=== PATIENT | male | born 1945 | race Caucasian/White ===

== ENCOUNTER 2017-01-23 14:29 | Outpatient (CLI) | payer MEDICARE ==
--- OUTSIDE RECORDS SUMMARY | 2017-01-23 15:18 | XMS | Continuity of Care Document ---
:1945 Author Organization [facility] Care Team Providers Name Role Phone Ramez Bennett Primary Care Physician Unavailable Insurance Providers Payer Name Policy Number Subscriber Name Relationship MEDICARE/HMO [facility] [place] [id number] LANIE MARTINEZ SELF/SAME PATIENT Advance Directives Directive Response Recorded Date/Time Advance Directive? N 01/29/16 1:36am Living Will? N 01/29/16 1:36am Health Care Proxy? N 01/29/16 1:36am Healthcare Power of Search Coordinator? N 01/29/16 1:36am Is the patient an Organ Donor? N 01/29/16 1:36am Chief Complaint and Reason for Visit Reason for Visit SOMETHING IN EYE Problems Active Medical Problems Problem Onset Date Recorded Date Status Corneal abrasion, left Unknown 01/29/16 Active Conjunctivitis Unknown 01/29/16 Active Medications Current Home Medications Medication Dose Units Route Directions Days/Qty Instructions Start Date ACETAMINOPHEN W/ 1 TAB PO EVERY SIX HOURS 20 01/29/16 CODEINE NEEDED PRN (ACETAMINOPHEN/CODE PAIN INE #3) 1 TAB TAB GENTAMICIN SULFATE 2 DROP OP EVERY FOUR HOURS 1 01/29/16 (OPHTH) (GARAMYCIN 0.3% OPTH DROPS) 0.3 % MICHELLE Gentamicin Sulfate 3 DROP OP THREE TIME A 20 08/18/13 (GENTAK 0.3% EYE DAY(;15;21) DROPS) 0.3 % MICHELLE Hydrocodone-Acetami 1 TAB OR EVERY FOUR HOURS 30 08/18/13 nophen (NORCO 5 NEEDED PRN MG/325 MG TAB) 5 EYE PAIN MG/325 MG TAB Social History Problem Response Recorded Date Recreational drugs? N 01/28/16 Alcohol? N 01/28/16 Query Response Start Date Stop Date Smoking Status: Former Smoker Hospital Discharge Instructions No hospital discharge instructions. Plan of Care Discharge Date 01/29/16 Disposition HOME/SELF CARE Condition at Discharge STABLE Instructions/Education Provided DI for Corneal Abrasion Forms Provided Discharge Form Prescriptions See Medications Section Additional Instructions/Education SEE PCP DOCTOR IN 2 DAYS Functional Status No functional status results. Allergies, Adverse Reactions, Alerts No known allergies. Immunizations No Known History of Immunizations. Vital Signs Vital Reading Collection Date/Time Result Blood Pressure 01/29/16 0:28am 153/90 Patient Temperature 01/29/16 0:28am 98.0 Temperature Source 01/28/16 11:49pm Oral Pulse Rate 01/29/16 0:28am 84 Bedside Pulse Oximetry 01/29/16 0:28am 96 Height 01/28/16 11:49pm 175.26 cm Height 01/28/16 11:49pm 5 ft 9.00 in Weight 01/28/16 11:49pm 92.986 kg Weight 01/28/16 11:49pm 205 lb 0.00 oz Body Mass Index 01/28/16 11:49pm 30.3 Results No known relevant diagnostic tests, laboratory data and/or discharge summary. Procedures No Known History of Procedures. Encounters Encounter Location Arrival/Admit Date Discharge/Depart Date Attending Provider Departed [place] 01/28/16 11:33pm 01/29/16 1:35am MANDIE OWENS [facility] Encounter Diagnosis Abrasion of left cornea Conjunctivitis
--- OUTSIDE RECORDS SUMMARY | 2017-01-23 15:18 | XMS | Clinical Summary ---
:1945 Author Organization [facility] Address [address] [place] [address] Phone Care Team Providers Name Role Phone , Primary Care Provider Unavailable Allergies Not on File Current Medications Not on file Active Problems Not on file Social History Tobacco Use Types Packs/Day Years Used Date Never Assessed Sex Assigned at Date Recorded Not on file Last Filed Vital Signs Not on file Plan of Treatment Not on file Results Not on filefrom Last 3 Months
[2017-01-23 18:54] LABS: Hematocrit 47.1 % (42.0-52.0); Mean Platelet Volume 7.7 fL (7.4-10.4); White Blood Cell (WBC) Count 8.2 thou/uL (4.8-10.8)
[2017-01-23 19:01] LABS: Prothrombin Time 15.4 SEC (12.0-14.7)
[2017-01-23 19:02] LABS: Bilirubin Negative (Negative); Blood, Urine Negative (Negative); Glucose, Urine (Dipstick) Negative (Negative); Ketone, Urine Negative (Negative); Nitrite Negative (Negative); Protein, Urine (Dipstick) Negative (Neg-Trace); Urobilinogen 0.2 mg/dL (0.2-1.0)
[2017-01-23 19:06] LABS: Anion Gap 18 mmol/L (10-20); BUN (Urea Nitrogen) 39 mg/dL (8.4-25.7); Calc. Creatinine Clearance 0 mL/min (70-130); Calcium 9.6 mg/dL (7.8-10.44); Carbon Dioxide 26 mmol/L (23-31); Chloride 104 mmol/L (98-107); Estimated GFR-MDRD 52
[2017-01-23 19:08] LABS: Bacteria/HPF None Seen HPF (None Seen); Hyaline Casts/LPF 0-3 HYALINE CAST LPF (0-3 Hyaline); RBC/HPF 0-3 HPF (0-3); Squamous Epithelial None Seen HPF (0-3); WBC/HPF None Seen HPF (0-3)
== END 2017-01-23 14:30 | disposition home or self-care (01) ==
LOC: LABBT 14:29
PROVIDERS: ATTEND Orthopaedic Surgery
DX: Z01.812 Encounter for preprocedural laboratory examination (principal); M19.012 Primary osteoarthritis, left shoulder
CPT/HCPCS: 80048; 81001; 85027; 85610; 87081

== ENCOUNTER 2017-02-02 10:30 | Inpatient (IN) | payer MEDICARE ==
--- OUTSIDE RECORDS SUMMARY | 2017-02-06 05:33 | XMS | Clinical Summary ---
:1945 Author Organization [facility] Address [address] [place] [address] Phone Care Team Providers Name Role Phone [...]
[2017-02-06] MEDS ORDERED: Fentanyl 100 MCG/2 ML VIAL ONE ×2 (06:26→10:44)
[2017-02-06] MEDS ORDERED: Midazolam HCl 2 mg/2 ml Vial ONE (06:26)
[2017-02-06] MEDS ORDERED: Ropivacaine 0.2% HCl/PF 20 ML ONE (06:26)
[2017-02-06] MEDS ORDERED: Tranexamic Acid 1,000 MG/100 ML BAG ONE ×2 (06:34→10:44)
[2017-02-06] MEDS ORDERED: CEFAZOLIN/Water 2 GM/20 ML SYRINGE ONE (06:35)
[2017-02-06] MEDS ORDERED: Vancomycin HCl 1.5 GM, Admixture Fee 1 EACH in Sodium Chloride 0.9% 250 ML 300 ML IVPB SCH ×2 (06:45→12:29)
[2017-02-06] MEDS ORDERED: Glycopyrrolate 0.2 MG/ML 5 ML SYRINGE ONE (07:27)
[2017-02-06] MEDS ORDERED: Ondansetron HCl/PF 4 MG/2 ML Vial ONE (07:27)
[2017-02-06] MEDS ORDERED: Propofol 200 MG/20 ML VIAL ONE (07:27)
[2017-02-06] MEDS ORDERED: PHENYLEPHRINE-NS 100 MCG/ML 10 ML SYRINGE ONE (07:27)
[2017-02-06] MEDS ORDERED: Promethazine HCl 25 MG/ML VIAL IM PRN ×3 (07:31→10:27)
[2017-02-06] MEDS ORDERED: Ropivacaine 0.2% 550 ML 550 ML NERVE BLCK SCH (07:31)
[2017-02-06] MEDS ORDERED: traMADol HCl 50 MG TAB PO PRN ×4 (07:31→12:29)
[2017-02-06] MEDS ORDERED: HYDROcodone/Acetaminophen 5/325 mg Tablet PO PRN ×2 (07:31)
[2017-02-06] MEDS ORDERED: Zolpidem Tartrate 5 MG TAB PO PRN (07:31)
[2017-02-06] MEDS ORDERED: Ondansetron HCl/PF 4 MG/2 ML Vial IVP PRN ×4 (07:31→12:29)
[2017-02-06] MEDS ORDERED: Fentanyl 100 MCG/2 ML VIAL IV PRN (07:32)
[2017-02-06] MEDS ORDERED: Promethazine HCl 25 MG/ML VIAL SLOW IVP PRN ×2 (08:33→10:27)
[2017-02-06] MEDS ORDERED: Tranexamic Acid 1,000 MG in Sodium Chloride 0.9% 100 ML IVPB SCH (09:45)
--- NOTE | 2017-02-06 12:20 | RAD ---
LEFT SHOULDER 3 VIEWS: Date: 02/06/17 HISTORY: Left shoulder arthroplasty. FINDINGS/IMPRESSION: There are postop changes of left humeral head prosthesis placement in good position and alignment. S urgical clips are present. There are degenerative changes in the acromioclavicular joint. ] POS: [facility]
[2017-02-06] MEDS ORDERED: diphenhydrAMINE 50 MG CAP PO PRN (12:29)
[2017-02-06] MEDS ORDERED: Methocarbamol 500 MG TAB PO PRN (12:29)
[2017-02-06] MEDS ORDERED: HYDROcodone/Acetaminophen 10/325 mg Tablet PO PRN ×3 (12:29→15:33)
[2017-02-06] MEDS ORDERED: Acetaminophen 325 MG TAB PO PRN (12:29)
[2017-02-06] MEDS ORDERED: Bisacodyl 10 MG SUPP PR PRN (12:29)
[2017-02-06] MEDS ORDERED: Gabapentin 100 MG CAP PO PRN (12:36)
[2017-02-06] MEDS ORDERED: HumaLOG 300 UNITS/3 ML VIAL SC PRN (13:26)
[2017-02-06] MEDS ORDERED: Dextrose 5% in Water 1,000 ML IV PRN (13:26)
[2017-02-06] MEDS ORDERED: Dextrose 50% Abboject 50 ML SYRINGE SLOW IVP PRN (13:26)
[2017-02-06] MEDS ORDERED: hydrALAZINE 20 MG/ML VIAL SLOW IVP PRN (13:26)
[2017-02-06] MEDS: Furosemide 80 MG TAB PO SCH (13:58)
[2017-02-06] MEDS ORDERED: Ropivacaine 0.5% HCl/PF (150 MG/30 ML VIAL) ONE (14:46)
[2017-02-06] MEDS: CEFAZOLIN/Water 2 GM/20 ML SYRINGE SLOW IVP SCH ×2 (15:39→20:59)
--- NOTE | 2017-02-06 15:57 | OP ---
DATE OF SURGERY: 02/06/2017 PREOPERATIVE DIAGNOSIS: Left shoulder osteoarthritis. POSTOPERATIVE DIAGNOSES: 1. Left shoulder osteoarthritis. 2. Biceps tendinopathy. PROCEDURES PERFORMED: 1. Left total shoulder arthroplasty. 2. Left biceps tenodesis. STAFF: Shant Prado M.D. RESTAURANT GREETER: TRISTAN Buck ANESTHESIA: Néstor Davies. The patient received a general intubation and interscalene block. ESTIMATED BLOOD LOSS: 300 mL. TOURNIQUET TIME: None. IMPLANTS: A Tornier Flex 2B stem with a low offset 50 x 16 mm head and a CortiLoc M35 Peg glenoid. ANTIBIOTICS: Ancef 2 grams, vancomycin 1.5 grams, TXA 1 gram. COMPLICATIONS: None. HISTORY OF PRESENT ILLNESS: Mr. Chaves is a pleasant 71-year-old male who presented to me with se veral years of left shoulder pain. The patient has a history of chronic pain, pain wakes him up at night. Pain is severe. We gave him injection which gave him good relief. 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 He understood the risks and b enefits of a left total shoulder arthroplasty, biceps tenodesis to include pain, scar, bleeding, inf ection, damage to vital structures, decreased range or strength, nonunion, malunion, fracture, need for revision, increased risk of infection with diabetes, loss of life or limb, understood these risk s and benefits and elected to proceed. PROCEDURE NOTE: Timeout was performed designating the patient's left upper extremity as the operati ve site based on sight, consents, and markings. Incision was made over the deltopectoral interval c kameron down and took a portion of the pec, exposed, kept the vein intact exposed. The patient had blee ding because of his Pradaxa, which was difficult to control within the bone. We controlled all veno us bleeding. We took down the superior aspect of his pec. We took down the subscapularis as 1 piec e. We cut the biceps and tagged it for a tenodesis later. We then exposed the head. I cut, based off the patient's articular surface which was sized to approximately B cut in 30 degrees of retrover bessy and the head was removed. We then broached up to size 2, it was actually firm and fixed and I was happy with the overall position. Therefore, we placed the hub cap on top, we reamed down osteop hytes inferiorly, then we put the hub cap on to position on the head. We placed Lexy in place and B ankart, exposed 360 degree. We took down the 360 degrees of entire capsule. We did the release sta stephen only on bone, bluntly dissecting inferiorly. After completely exposing and scraping off the ca rtilage that it was felt was free and washing that out, we sized to M35. We then placed a center pe g. We reamed, drilled a large hole. We then placed our 3 peg sites, we trialed, had a good firm fi t. We had started our cementing. We then placed in our 3 outer pegs and cemented glenoid in place. We then moved back to the humerus allowing the cement to harden. We placed size 2. Finally, we r eamed down, fit better at 12 o'clock position. I liked the overall alignment and position of the st em and it was firmly fixed in its position. Therefore, we drilled 4 sutures in simple fashion from inferior to superior and one through the cuff in a more lateral to help with a double row construct, placed the final implants. After I trialed and felt like it had 50%, was able to internally rotate the belly and overhead elevation 50% translation. We then used our stitches, we did a W stitch wit h our suture limb where the subscapularis was detached, we placed another stitch as mattress fashion , sewed this together from inferior to superior, cut the stitches. I then used a #2 Ethibond to do my tenodesis in the remnant tissue interval with two [id number] stitches, also used it again wh en I closed my rotator interval superiorly with [id number] stitch. I then finally passed my la rge rotator cuff, #5 Ethibond passed over the subscapularis, ran it and then passed a second limb ov er it as a double row closure and then we cut that, we then washed, and closed the deltopectoral int erval with 0, 2-0 and colt. The patient will be admitted, consult for medicine. The patient will have CBC in the morning. He w ill be followed by pain and will be discharged home with his pain regimen from his pain specialist.
[2017-02-06] MEDS ORDERED: Benzonatate 100 MG CAP PO PRN (16:31)
[2017-02-06] MEDS ORDERED: Guaifenesin DM 100-10/5 ML UDCUP PO PRN (16:32)
[2017-02-06 16:49] LABS: Hematocrit 41.8 % (42.0-52.0)
[2017-02-06] MEDS: Famotidine 20 MG TAB PO SCH ×2 (18:40→20:53)
[2017-02-06] MEDS: Sodium Chloride 0.9% 1,000 ML IV SCH (18:41)
[2017-02-06] MEDS: HumaLOG 300 UNITS/3 ML VIAL SC SCH (18:41)
--- NOTE | 2017-02-06 20:07 | RAD ---
CHEST TWO VIEWS: 02/06/17 HISTORY: Fall. Chest pain. COMPARISON: 12/05/14. FINDINGS: The cardiac silhouette is unremarkable. Patchy infiltrate projects over the left suprahilar level. T here is obscuration of the posterior aspect of the left hemidiaphragm. IMPRESSION: Left lower lobe infiltrate. Clinical correlation regarding other signs and symptoms of left lower lo be pneumonia is required. Please consider close continued radiographic followup after medial treatme nt. POS: [facility]
[2017-02-06 20:15] VITALS: BMI 34.0
[2017-02-06] MEDS: Dabigatran 150 mg Capsule PO SCH (20:52)
[2017-02-06] MEDS: Nebivolol HCl 5 MG TAB PO SCH (20:52)
[2017-02-06] MEDS: Potassium Chloride 20 MEQ TAB PO SCH (20:53)
[2017-02-06] MEDS: Insulin Detemir 100 UNITS/ML 50 UNITS in Pre-Filled Syringe 1 EACH SC SCH (21:15)
[2017-02-06] MEDS ORDERED: Furosemide 40 MG/4 ML VIAL SLOW IVP SCH (22:00)
--- NOTE | 2017-02-06 22:03 | CON ---
DATE OF CONSULTATION: 02/06/2017 CONSULTING PHYSICIAN: Shant Prado M.D. REASON FOR ADMISSION: Left frozen shoulder status post left total arthroplasty. REASON FOR CONSULTATION: Medical management. HISTORY OF PRESENT ILLNESS: This is a 71-year-old pleasant gentleman who was apparently in usual [facility], had left shoulder pain and was diagnosed with frozen shoulder on the left side. The patient was admitted and was taken to surgery for a left shoulder arthroplasty. The patient was adm itted for left shoulder arthroplasty and biceps tenodesis. The patient right now is complaining of some cough with a little bit of sputum production. No chest pain, palpitations, shortness of breath , fever or chills. No runny nose. PAST MEDICAL HISTORY: Significant for coronary artery disease status post stent, hypertension, hype rlipidemia, diabetes mellitus, chronic atrial fibrillation on Pradaxa and digoxin. The patient's ca rdiologist is Dr. Matthieu De Souza from [place]. PAST SURGICAL HISTORY: Significant for colonoscopy and EGD, which was screening procedures. MEDICATIONS: Include Pradaxa, digoxin, Lasix, gabapentin, [place], insulin, Bystolic, and Viagra. ALLERGIES: No known drug allergies. SOCIAL HISTORY: Negative for current smoke, tobacco use, alcohol use, or recreational drug use. REVIEW OF SYSTEMS: Significant for status post left shoulder surgery and some cough with some mild sputum production white greenish in color. Otherwise, no fever, no chills, no headache, no appetite , no hearing latencies. No chest pain, no diarrhea, dysuria, or polyuria. No memory or mood change s. No neck pain. PHYSICAL EXAMINATION: VITAL SIGNS: Blood pressure is 121/72, pulse is varies between 90 and 100, respirations 18, tempera ture is afebrile. GENERAL: The patient is lying in bed in no apparent distress. HEENT: Atraumatic, normocephalic. Pupils equally round, reactive to light. Extraocular movements intact. Mucous membranes moist. NECK: Supple. No JVD. CHEST: Breath sounds heard. No rales or rhonchi. HEART: S1, S2 normal, irregularly irregular heartbeat. ABDOMEN: Soft, obese. EXTREMITIES: The patient's left shoulder is in dressing. There is a drain present. No cyanosis, c lubbing, or edema. Distal pulses present. NEUROLOGIC: Alert, awake, oriented. No cranial deficits. No sensorimotor deficits. LABORATORY DATA: Potassium is 4.8, creatinine is 1.3. UA is negative. WBC count is 8.2, hemoglobi n is 15. ASSESSMENT AND PLAN: 1. Left frozen shoulder, status post left shoulder arthroplasty. 2. Biceps tendinopathy, status post left biceps tenodesis. 3. Coronary artery disease, status post stent, stable. 4. Hypertension, stable. We will continue home medications, p.r.n. hydralazine. 5. Diabetes mellitus, insulin sliding scale. We will continue home medications. 6. Chronic atrial fibrillation. Surgery has already continued with Pradaxa and digoxin. 7. Sequential compression devices and Pradaxa for deep venous thrombosis prophylaxis. I will work with the Dr. Prado in further caring for the patient. Thanks for letting me participate in this patient's care.
[2017-02-06] MEDS: HYDROcodone/Acetaminophen 10/325 mg Tablet PO PRN (22:21)
--- NOTE | 2017-02-06 22:25 | RAD ---
CHEST ONE VIEW 02/06/17 HISTORY: Cough. COMPARISON: Earlier exam on the same date. FINDINGS: The cardiac silhouette is magnified and at upper limits of normal in size. Left basilar atelectasis/ infiltrate has progressed since the previous exam. Mediastinum is midline. There is no evidence of p neumothorax. IMPRESSION: Continued progression of left basilar infiltrate. POS: [facility]
[2017-02-07] MEDS: HYDROcodone/Acetaminophen 10/325 mg Tablet PO PRN ×2 (02:58→08:23)
[2017-02-07] MEDS: Sodium Chloride 0.9% 1,000 ML IV SCH (04:58)
[2017-02-07 05:35] LABS: Hematocrit 39.5 % (42.0-52.0); Mean Platelet Volume 8.1 fL (7.4-10.4); Red Blood Cell (RBC) Count 4.79 mill/uL (4.70-6.10); White Blood Cell (WBC) Count 9.8 thou/uL (4.8-10.8)
[2017-02-07] MEDS: Furosemide 80 MG TAB PO SCH (08:22)
[2017-02-07] MEDS: Insulin Detemir 100 UNITS/ML 50 UNITS in Pre-Filled Syringe 1 EACH SC SCH (08:22)
[2017-02-07] MEDS: Potassium Chloride 20 MEQ TAB PO SCH (08:22)
[2017-02-07] MEDS: Dabigatran 150 mg Capsule PO SCH (08:23)
[2017-02-07] MEDS: Nebivolol HCl 5 MG TAB PO SCH (08:23)
[2017-02-07] MEDS: Famotidine 20 MG TAB PO SCH (08:23)
[2017-02-07] MEDS: HumaLOG 300 UNITS/3 ML VIAL SC SCH (08:25)
[2017-02-07 08:59] VITALS: BP 135/55; TEMP 98.5
[2017-02-07] MEDS ORDERED: Digoxin 0.125 MG TAB PO SCH (09:00)
[2017-02-07] MEDS ORDERED: FLU VACC TS2017-18 (>65YR) 0.5 ML SYRINGE IM ONE (09:00)
--- NOTE | 2017-02-07 16:15 | PDOC.PN ---
- Subjective Encounter Start Date: 02/07/17 Encounter Start Time: 08:00 Patient seen and examined. No new complaints. No overnight events - Objective Vital Signs & Weight: Vital Signs (12 hours) Temp Pulse Resp BP Pulse Ox 02/07/17 08:22 69 02/07/17 08:00 98.5 F 69 20 02/07/17 07:50 98.5 F 86 20 135/55 L 95 02/07/17 05:50 98.2 F 69 18 111/61 96 Weight Weight 230 lb I&O: 02/06/17 02/07/17 02/08/17 06:59 06:59 06:59 Intake Total 730 Output Total 600 Balance 130 Result Diagrams: 02/07/17 04:46 Additional Labs: Accuchecks 02/07/17 02/07/17 02/07/17 11:46 06:16 05:51 POC Glucose 184 H 80 77 02/06/17 02/06/17 21:05 16:07 POC Glucose 102 89 Phys Exam - Physical Examination Constitutional: NAD HEENT: PERRLA Neck: no JVD Respiratory: no wheezing Cardiovascular: no significant murmur Gastrointestinal: non-tender lt shoulder in dressing Neurological: moves all 4 limbs Psychiatric: A&O x 3 Dx/Plan (1) CAD (coronary artery disease) Code(s): I25.10 - ATHSCL HEART DISEASE OF [place] CORONARY ARTERY W/O ANG PCTRS Status: Acute (2) Afib Code(s): I48.91 - UNSPECIFIED ATRIAL FIBRILLATION Status: Acute (3) Bronchitis Code(s): J40 - BRONCHITIS, NOT SPECIFIED ACUTE OR CHRONIC Status: Acute (4) HTN (hypertension) Code(s): I10 - ESSENTIAL (PRIMARY) HYPERTENSION Status: Acute (5) Diabetes type I Status: Chronic - Plan * lt frozen shoulder- f/u ortho plan * start levaquin for bronchitis * cont current mx * d/c per primary
[2017-02-20 09:45] LABS: Oxyhemoglobin 97.6 % (94.0-97.0); Sodium 141 mmol/L (135-148)
[2017-02-21 07:36] LABS: Mode OR ABG; Vent YES
== END 2017-02-07 12:00 | disposition home or self-care (01) | DRG 483 ==
LOC: SURG A 02-06 05:30
PROVIDERS: ADMIT Orthopaedic Surgery; ATTEND Orthopaedic Surgery
PROC: 0RRK0JZ Replacement of Left Shoulder Joint with Synthetic Substitute, Open Approach (ICD-10-PCS; principal; 2017-02-06)
PROC: 3E0T3BZ Introduction of Anesthetic Agent into Peripheral Nerves and Plexi, Percutaneous Approach (ICD-10-PCS; 2017-02-06)
DX: M19.012 Primary osteoarthritis, left shoulder (principal); E11.42 Type 2 diabetes mellitus with diabetic polyneuropathy; I50.9 Heart failure, unspecified; I48.2 Chronic atrial fibrillation; I10 Essential (primary) hypertension; I25.10 Atherosclerotic heart disease of native coronary artery without angina pectoris; Z95.5 Presence of coronary angioplasty implant and graft; E78.5 Hyperlipidemia, unspecified; E11.9 Type 2 diabetes mellitus without complications; N40.0 Benign prostatic hyperplasia without lower urinary tract symptoms; N18.9 Chronic kidney disease, unspecified; J20.9 Acute bronchitis, unspecified; Z87.891 Personal history of nicotine dependence; M75.22 Bicipital tendinitis, left shoulder
CPT/HCPCS: 36415; 36416; 71010; 71020; 82805; 85014; 85018; 85027; 86850; 86900; 86901; A4306; C1713; G8984-GP-CK; G8985-GP-CK; G8986-GP-CK; G8987-GO-CJ; G8988-GO-CJ; G8989-GO-CJ; J0131; J1815; J1940; J2250; J2405; J2704; J2795; J3010; J3370; J7050

== ENCOUNTER 2018-09-19 01:31 | Outpatient (CLI) | payer MEDICARE ==
--- NOTE | 2018-09-19 10:23 | RAD ---
PA AND LATERAL CHEST: Date: 09/19/18 HISTORY: Preop. COMPARISON: 02/06/17 study. FINDINGS: Heart size is within normal limits. There are atherosclerotic changes of the aorta. Lungs are clear o f infiltrates. Left humeral prosthesis is noted. IMPRESSION: No active intrathoracic disease. POS: [facility]
[2018-09-19 10:46] LABS: #Basophils 0.1 thou/uL (0.0-0.2); #Eosinphils 0.3 thou/uL (0.0-0.7); #Neutrophils 4.1 thou/uL (1.40-6.50); %Basophils 0.7 % (0.0-1.0); %Eosinophils 3.6 % (0.0-10.0); %Lymphocytes 26.7 % (21.0-51.0); %Monocytes 13.8 % (0.0-10.0); %Neutrophils 55.3 % (42.0-75.0); Mean Corpuscular HGB CONC 32.6 g/dL (32.0-36.0); Mean Platelet Volume 7.8 fL (7.4-10.4); Platelet Count 174 thou/uL (130-400); RBC Distribution Width 15.1 % (11.5-14.5); Red Blood Cell (RBC) Count 5.57 mill/uL (4.70-6.10); White Blood Cell (WBC) Count 7.3 thou/uL (4.8-10.8)
[2018-09-19 10:57] LABS: INR-International Normal Ratio 1.5; Prothrombin Time 18.1 SEC (12.0-14.7)
[2018-09-19 11:11] LABS: Anion Gap 16 mmol/L (10-20); BUN (Urea Nitrogen) 34 mg/dL (8.4-25.7); Calc. Creatinine Clearance 0 mL/min (70-130); Calcium 9.6 mg/dL (7.8-10.44); Carbon Dioxide 25 mmol/L (23-31); Chloride 103 mmol/L (98-107); Estimated GFR-MDRD 47; Glucose 163 mg/dL (83-110); Potassium 4.6 mmol/L (3.5-5.1); Sodium 139 mmol/L (136-145)
== END 2018-09-19 01:32 | disposition home or self-care (01) ==
LOC: LABBT 01:31
PROVIDERS: ATTEND Orthopaedic Surgery
DX: Z01.818 Encounter for other preprocedural examination (principal); M17.12 Unilateral primary osteoarthritis, left knee
CPT/HCPCS: 71046; 80048; 85025; 85610; 87081; 93005; 93010

== ENCOUNTER 2018-09-19 08:45 | Inpatient (IN) | payer MEDICARE ==
[2018-10-08] MEDS ORDERED: Vancomycin HCl 1.5 GM in Sodium Chloride 0.9% 250 ML 300 ML IVPB SCH ×2 (07:00→20:00)
[2018-10-08] MEDS ORDERED: Tranexamic Acid 1,000 MG/10 ML VIAL ONE (07:14)
[2018-10-08] MEDS ORDERED: Sodium Chloride 0.9% 100 ML ONE (07:15)
[2018-10-08] MEDS ORDERED: Fentanyl 100 MCG/2 ML VIAL ONE ×4 (07:27→12:15)
[2018-10-08] MEDS ORDERED: Midazolam HCl 2 mg/2 ml Vial ONE (07:27)
[2018-10-08] MEDS ORDERED: Promethazine HCl 25 MG/ML VIAL IM PRN ×3 (08:46→11:53)
[2018-10-08] MEDS ORDERED: Fentanyl 100 MCG/2 ML VIAL IV PRN (08:46)
[2018-10-08] MEDS ORDERED: Zolpidem Tartrate 5 MG TAB PO PRN (08:46)
[2018-10-08] MEDS ORDERED: Ondansetron PF 4 MG/2 ML Vial IVP PRN ×2 (08:46→11:22)
[2018-10-08] MEDS ORDERED: traMADol HCl 50 MG TAB PO PRN ×2 (08:46)
[2018-10-08] MEDS ORDERED: Ropivacaine HCl/PF 250 ML in Premix Bag 1 BAG NERVE BLCK SCH (08:46)
[2018-10-08] MEDS ORDERED: HYDROcodone/Acetaminophen 10/325 mg Tablet PO PRN ×3 (08:46→11:22)
[2018-10-08] MEDS ORDERED: Bupivacaine/Epinephrine 0.25% 30 ML VIAL ONE (09:41)
[2018-10-08] MEDS ORDERED: Ropivacaine 0.2% HCl/PF (40 MG/20 ML VIAL) ONE (09:46)
[2018-10-08] MEDS ORDERED: Ropivacaine 0.5% HCl/PF (150 MG/30 ML VIAL) ONE (09:46)
[2018-10-08] MEDS ORDERED: methylPREDNISolone Acetate 40 mg/ml Vial ONE (09:49)
[2018-10-08] MEDS ORDERED: Lidocaine 1% (PF) 30 ML VIAL ONE (09:49)
[2018-10-08] MEDS ORDERED: Ondansetron PF 4 MG/2 ML Vial ONE (10:55)
[2018-10-08] MEDS ORDERED: Dexamethasone 20 MG/5 ML VIAL ONE (10:55)
[2018-10-08] MEDS ORDERED: PROPOFOL 200 MG/20 ML VIAL ONE (10:55)
[2018-10-08] MEDS ORDERED: Lidocaine 1% PF 5 ML VIAL ONE (10:55)
[2018-10-08] MEDS ORDERED: ePHEDrine 50 MG/ML VIAL ONE (10:55)
[2018-10-08] MEDS ORDERED: Fentanyl 100 MCG/2 ML VIAL SLOW IVP PRN ×2 (11:22)
[2018-10-08] MEDS ORDERED: diphenhydrAMINE 25 MG CAP PO PRN (11:22)
[2018-10-08] MEDS ORDERED: Acetaminophen 325 MG TAB PO PRN (11:22)
[2018-10-08] MEDS ORDERED: Promethazine HCl 25 MG/ML VIAL SLOW IVP PRN (11:53)
[2018-10-08] MEDS ORDERED: Ondansetron HCl/PF 4 MG/2 ML Vial IVP PRN (11:53)
[2018-10-08] MEDS ORDERED: Sildenafil Citrate 20 MG TAB PO PRN (12:07)
--- NOTE | 2018-10-08 12:48 | RAD ---
LEFT KNEE TWO VIEWS: 10/08/18 HISTORY: Total knee arthroplasty. FINDINGS/IMPRESSION: There are recent postop changes of total knee arthroplasty in good position and alignment. Soft tissu e air is present. POS: [facility]
[2018-10-08] MEDS ORDERED: Dextrose 50% Abboject 50 ML SYRINGE SLOW IVP PRN (13:10)
[2018-10-08] MEDS ORDERED: Dextrose 5% in Water 1,000 ML IV PRN (13:10)
[2018-10-08] MEDS ORDERED: Insulin Regular 300 UNITS/3 ML VIAL SC PRN ×2 (13:10)
[2018-10-08] MEDS: HumaLOG 300 UNITS/3 ML VIAL SC PRN ×3 (14:02→20:46)
[2018-10-08] MEDS: CEFAZOLIN 2 GM in Premix Bag 1 BAG IVPB SCH ×2 (14:02→22:32)
[2018-10-08] MEDS: Sodium Chloride 0.9% 1,000 ML IV SCH ×3 (14:12→22:36)
--- NOTE | 2018-10-08 14:50 | HP ---
HISTORY OF PRESENT ILLNESS: Mr. Chaves is a 73-year-old male, well known to my service, presents with left greater than right knee pain, desires to undergo a left total knee arthroplasty. The patient has failed conservative measures. He has history of chronic pain. He has received his cardiac clearance and is preoperatively cleared. He desires to have a right knee injection. PAST MEDICAL HISTORY: Coronary artery disease, atrial fibrillation, diabetes, reflux, heart failure, pneumonia, peripheral neuropathy, chronic kidney disease, BPH, pain management. PAST SURGICAL HISTORY: Coronary stents x2, colonoscopy, appendectomy, tonsillectomy, right leg fracture, bilateral carpal tunnel, right and left elbow surgery, left total shoulder. MEDICATIONS: 1. Pradaxa. 2. Diclofenac. 3. Digoxin. 4. Furosemide. 5. Humalog. 6. Hydrocodone. 7. [place]-3. 8. Potassium. 9. Viagra. 10. Ambien. ALLERGIES: MORPHINE. SOCIAL HISTORY: Nonsmoker. Nonalcoholic. The patient works as a manufacturers agent of the shelter. PHYSICAL EXAMINATION: GENERAL: Alert and oriented male, in no acute distress, resting comfortably in bed. EXTREMITIES: Left lower extremity, the patient has no effusion. He has stable exam. Neurovascularly intact distally. Range of motion 0 to 90. No laxity. Neurovascularly intact. Right knee tender to palpation. Neurovascularly intact distally. IMPRESSION: Bilateral knee osteoarthritis, left greater than right. ASSESSMENT AND PLAN: The patient will proceed with a total knee arthroplasty of his left knee. We will inject his right knee before the surgery. He is to discontinue the Pradaxa. I discussed risks and benefits of surgery, pain, scar, bleeding, infection, damage to vital structures, decreased range of motion and strength, nonunion, fracture above or below the stem, and need for further surgery, loss of life or limb. The patient understands the risks and benefits, elected to proceed. The patient's pain medication will be maintained and he will be started back on his pain contract with his previous doctors. Job ID: [id number]
[2018-10-08] MEDS ORDERED: HumaLOG 300 UNITS/3 ML VIAL SC SCH ×2 (15:00→16:00)
[2018-10-08] MEDS: HumaLOG 300 UNITS/3 ML VIAL SC SCH ×2 (15:48→17:45)
[2018-10-08] MEDS: Furosemide 80 MG TAB PO SCH (15:53)
--- NOTE | 2018-10-08 16:33 | OP ---
DATE OF PROCEDURE: 10/08/2018 PREOPERATIVE DIAGNOSES: 1. Left knee osteoarthritis. 2. Right knee osteoarthritis. POSTOPERATIVE DIAGNOSES: 1. Left knee osteoarthritis. 2. Right knee osteoarthritis. PROCEDURES PERFORMED: 1. Left total knee arthroplasty. 2. Right knee intra-articular injection. ELECTRIC DOLLY OPERATOR: Leon Saenz PA-C. ANESTHESIA: The patient received a LMA with a single-shot sciatic and an indwelling adductor canal catheter. ESTIMATED BLOOD LOSS: 100 mL. TOURNIQUET TIME: 63 minutes at 300 mmHg. ANTIBIOTICS: Ancef 2 g and vancomycin 1.5 g. The patient received TXA 1 g. IMPLANTS: Ortiz Triathlon size 4 CR femur, A32 patella, size 4 baseplate, size 4 x 9 mm CS insert. COMPLICATIONS: None. INDICATION: Mr. Chaves is a 73-year-old male who presents with bilateral knee pain. He desired left total knee arthroplasty. The patient has history of chronic pain. I discussed the risks and benefits associated with chronic pain and total knee arthroplasty. I discussed risks and benefits of the surgery to include pain, scar, bleeding, infection, damage to vital structures, decreased range of motion and strength, nonunion, malunion, fracture above the stems, need for further surgeries, failure of implants, loss of life and limb, blood clots. The patient understood the risks and benefits and elected to proceed. DESCRIPTION OF PROCEDURE: Time-out was performed designating the patient's left lower extremity as the operative site based on site, consents, and marking. After time-out, the left lower extremity was prepped and draped in sterile fashion. Tourniquet was brought up for 63 minutes. Anterior midline approach, medial patellar arthrotomy was performed. At medial soft tissue, excised the fat pad, everted the patella, exposed the distal femur cut. 2 degrees of varus and valgus, 4 degrees of slope, and cut 8 to 9 [address] Pl[address] our block, measured it to 4 and cut a size 4 anterior, posterior and chamfer cuts. Removed all the osteophytes. Placed the pickle fork in position after we released our PCL and exposed the patient's tibia. We mapped out the tibia with 4 to 5 degrees of posterior slope, 1 and 8 mm of the respective cuts, removed the bone, and cleaned off our osteophytes. We placed our tibial tray into position, anterior 1/3 tibial tray inline with tibial tubercle down to second ray, pinned it into position, placed a 9 poly and our femur tracked well. We liked the overall alignment and stability. We everted the patella, cut it down from about 23 down to about 11 to 12 mm. We placed our A32 patella, which tracked well. We liked the overall alignment and position. We removed our implants, removed all excess bone. We had done our lamina spreaders and removed our osteophytes as well as our menisci before placing our final components. We cemented in our tibia and placed tibial poly, cemented our femur, removed all excess cement from both. We cemented our patella and removed excess cement. We washed the joint and ensured we had all cleaned out. We closed the medial patellar arthrotomy with 2 Vicryl, 2 Quill, 0 Quill and glue. The patient will be admitted to [facility] for postoperative protocol. We will follow him inhouse. Job ID: [id number]
--- NOTE | 2018-10-08 19:47 | PDOC.PN ---
- Subjective Encounter Start Date: 10/08/18 Encounter Start Time: 17:00 Subjective: no sob or chest pain -: is worried about his fingerstick glucose going >200mg/dl -: no pain in his knee, has ambulated with PT post op - Objective MAR Reviewed: Yes Vital Signs & Weight: Vital Signs (12 hours) Temp Pulse Resp BP Pulse Ox 10/08/18 17:20 97.7 F 93 18 145/70 H 97 10/08/18 12:50 97.6 F 81 18 167/91 H 96 Weight Weight 215 lb 7.584 oz I&O: 10/07/18 10/08/18 10/09/18 06:59 06:59 06:59 Intake Total 1500 Balance 1500 Additional Labs: Accuchecks 10/08/18 10/08/18 10/08/18 18:37 15:10 13:10 POC Glucose 173 H 229 H 242 H 10/08/18 12:16 POC Glucose 195 H Phys Exam - Physical Examination HEENT: PERRLA, moist MMs Neck: no JVD, supple Respiratory: no wheezing, no rales Cardiovascular: RRR, no significant murmur Gastrointestinal: soft, non-tender, positive bowel sounds Musculoskeletal: pulses present left knee in dressing Neurological: non-focal, moves all 4 limbs Psychiatric: normal affect, A&O x 3 Dx/Plan (1) DM type 2 (diabetes mellitus, type 2) Status: Chronic Qualifiers: Diabetes mellitus alf insulin use: with alf use Diabetes mellitus complication status: with neurologic complications Diabetes mellitus complication detail: with polyneuropathy Qualified Code(s): E11.42 - Type 2 diabetes mellitus with diabetic polyneuropathy; Z79.4 - terminal supervisor (current) use of insulin (2) CKD (chronic kidney disease) Code(s): N18.9 - CHRONIC KIDNEY DISEASE, UNSPECIFIED Status: Chronic Qualifiers: Chronic kidney disease stage: unspecified stage Qualified Code(s): N18.9 - Chronic kidney disease, unspecified (3) BPH (benign prostatic hyperplasia) Code(s): N40.0 - BENIGN PROSTATIC HYPERPLASIA WITHOUT LOWER URINRY TRACT SYMP Status: Chronic Qualifiers: Lower urinary tract symptom presence: symptoms absent Qualified Code(s): N40.0 - Benign prostatic hyperplasia without lower urinary tract symptoms (4) Afib Code(s): I48.91 - UNSPECIFIED ATRIAL FIBRILLATION Status: Chronic Qualifiers: Atrial fibrillation type: paroxysmal Qualified Code(s): I48.0 - Paroxysmal atrial fibrillation (5) CAD (coronary artery disease) Code(s): I25.10 - ATHSCL HEART DISEASE OF [place] CORONARY ARTERY W/O ANG PCTRS Status: Chronic Qualifiers: Coronary Disease-Associated Artery/Lesion type: [place] artery [place] vs. transplanted heart: [place] heart Associated angina: without angina Qualified Code(s): I25.10 - Atherosclerotic heart disease of [place] coronary artery without angina pectoris Comment: prior stent x2, primary cardio: in [place] (6) CHF (congestive heart failure) Code(s): I50.9 - HEART FAILURE, UNSPECIFIED Status: Chronic Qualifiers: Heart failure type: unspecified Heart failure chronicity: chronic Qualified Code(s): I50.9 - Heart failure, unspecified (7) HTN (hypertension) Code(s): I10 - ESSENTIAL (PRIMARY) HYPERTENSION Status: Chronic Qualifiers: Hypertension type: essential hypertension Qualified Code(s): I10 - Essential (primary) hypertension - Plan hemostable -: is on aggressive humalog sliding scale in addition to 5 u with meals -: watch for hypoglycemia, I have tried to educate pt about post op stress and -: --dm being a bit labile, to aim for 150-200mg/dl -: Will provide him information about basal insulin prior to dc * . labs in am will f/u continue pradaxa bid, digoxin, lasix, bystolic. Ropivacaine nr block and prn pain meds. Review of Systems - Medications/Allergies Allergies/Adverse Reactions: Allergies Allergy/AdvReac Type Severity Reaction Status Date / Time No Known Allergies Allergy Verified 09/19/18 08:52 Medications: Current Medications Acetaminophen (Tylenol) 650 mg PO Q4H PRN PRN Reason: Headache/Fever or Pain Hydrocodone Bitart/Acetaminophen ([place] 10/325) 1 tab PO Q4H PRN PRN Reason: Pain (1-3) Hydrocodone Bitart/Acetaminophen ([place] 10/325) 2 tab PO Q4H PRN PRN Reason: PAIN (4-6) Dabigatran (Pradaxa) 150 mg PO BID [facility] Dextrose/Water (Dextrose 50%) 25 gm SLOW IVP PRN PRN PRN Reason: Hypoglycemia Digoxin (Lanoxin) 0.125 mg PO QAM [facility] Diphenhydramine HCl (Benadryl) 25 mg PO Q6H PRN PRN Reason: Itching Fentanyl (Sublimaze) 50 mcg IV Q1H PRN PRN Reason: BREAKTHROUGH PAIN Ferrous Gluconate (Fergon) 324 mg PO BID-WM [facility] Furosemide (Lasix) 80 mg PO BID-AC [facility] Last Admin: 10/08/18 15:53 Dose: 80 mg Glucagon (Glucagon) 1 mg IM PRN PRN PRN Reason: Hypoglycemia Ropivacaine 250 ml/ Device 250 mls @ 0 mls/hr NERVE BLCK INF [facility] Cefazolin Sodium/Dextrose 2 gm (/ Device) 50 mls @ 100 mls/hr IVPB 0700,1500, 2300 [facility] Stop: 10/08/18 23:29 Last Admin: 10/08/18 14:02 Dose: 50 mls Sodium Chloride (Normal Saline 0.9%) 1,000 mls @ 100 mls/hr IV .Q10H [facility] Last Admin: 10/08/18 14:12 Dose: Not Given Vancomycin HCl 1.5 gm/ Sodium (Chloride) 300 mls @ 200 mls/hr IVPB 2000 [facility] Stop: 10/08/18 21:29 Dextrose/Water (D5w) 1,000 mls @ 0 mls/hr IV .Q0M PRN PRN Reason: Hypoglycemia Insulin Human Lispro (Humalog) 0 units SC .AGGRESSIVE SLIDING PRN PRN Reason: Aggressive Correctional Scale Last Admin: 10/08/18 15:49 Dose: 6 units Insulin Human Lispro (Humalog) 0 units SC .BEDTIME SLIDING SC PRN PRN Reason: Bedtime Correctional Scale Insulin Human Lispro (Humalog) 5 units SC 0800 [facility] Insulin Human Lispro (Humalog) 5 units SC 1200 [facility] Insulin Human Lispro (Humalog) 5 units SC 1700 [facility] Last Admin: 10/08/18 17:45 Dose: Not Given Iron/Minerals/Multivitamins (Theragran M) 1 tab PO DAILY [facility] Nebivolol (Bystolic) 10 mg PO BID [facility] Ondansetron HCl (Zofran) 4 mg IVP Q6H PRN PRN Reason: Nausea/Vomiting Potassium Chloride (K-Dur) 20 meq PO BID [facility] Promethazine HCl (Phenergan) 12.5 mg IM Q4H PRN PRN Reason: Nausea/Vomiting Senna/Docusate Sodium (Senokot S) 2 tab PO BID [facility] Sodium Chloride (Flush - Normal Saline) 10 ml IVF PRN PRN PRN Reason: Saline Flush Tramadol HCl (Ultram) 50 mg PO Q6H PRN PRN Reason: Mild Pain (1-3) Tramadol HCl (Ultram) 100 mg PO Q6H PRN PRN Reason: Moderate Pain 4-6 Zolpidem Tartrate (Ambien) 5 mg PO HSPRN PRN PRN Reason: Insomnia
[2018-10-08] MEDS: Nebivolol HCl 5 MG TAB PO SCH (20:26)
[2018-10-08] MEDS: Potassium Chloride 20 MEQ TAB PO SCH (20:27)
[2018-10-08 20:35] LABS: Anion Gap 17 mmol/L (10-20); BUN (Urea Nitrogen) 35 mg/dL (8.4-25.7); Calc. Creatinine Clearance 63 mL/min (70-130); Carbon Dioxide 27 mmol/L (23-31); Chloride 98 mmol/L (98-107); Estimated GFR-MDRD 47; Glucose 203 mg/dL (83-110); Potassium 4.5 mmol/L (3.5-5.1); Sodium 137 mmol/L (136-145)
[2018-10-08] MEDS: HYDROcodone/Acetaminophen 10/325 mg Tablet PO PRN (20:37)
[2018-10-08] MEDS: Zolpidem Tartrate 5 MG TAB PO PRN (22:32)
[2018-10-09] MEDS: HYDROcodone/Acetaminophen 10/325 mg Tablet PO PRN ×5 (02:03→22:26)
[2018-10-09] MEDS: HumaLOG 300 UNITS/3 ML VIAL SC PRN ×2 (06:00→15:02)
[2018-10-09 07:15] LABS: Hemoglobin 14.9 g/dL (14.0-18.0); Mean Corpuscular Volume 84.8 fL (78.0-98.0); Mean Platelet Volume 7.5 fL (7.4-10.4); Platelet Count 216 thou/uL (130-400); RBC Distribution Width 14.3 % (11.5-14.5); Red Blood Cell (RBC) Count 5.31 mill/uL (4.70-6.10); White Blood Cell (WBC) Count 15.7 thou/uL (4.8-10.8)
[2018-10-09 07:38] LABS: ALT (SGPT) 17 U/L (8-55); AST (SGOT) 19 U/L (5-34); Albumin 4.4 g/dL (3.4-4.8); Alkaline Phosphatase 94 U/L (40-150); Anion Gap 18 mmol/L (10-20); BUN (Urea Nitrogen) 40 mg/dL (8.4-25.7); Bilirubin, Total 0.6 mg/dL (0.2-1.2); Calc. Creatinine Clearance 55 mL/min (70-130); Calcium 9.5 mg/dL (7.8-10.44); Carbon Dioxide 22 mmol/L (23-31); Chloride 98 mmol/L (98-107); Estimated GFR-MDRD 40; Globulin 2.5 g/dL (2.4-3.5); Glucose 366 mg/dL (83-110); Hemoglobin A1c 6.5 % (4.0-6.0); Potassium 4.3 mmol/L (3.5-5.1); Protein, Total 6.9 g/dL (5.8-8.1); Sodium 134 mmol/L (136-145)
[2018-10-09] MEDS ORDERED: HumaLOG 300 UNITS/3 ML VIAL SC SCH ×2 (08:00→12:00)
[2018-10-09] MEDS: Furosemide 80 MG TAB PO SCH ×2 (08:52→16:56)
[2018-10-09] MEDS: Ferrous Gluconate 324 MG TAB PO SCH ×2 (08:53→16:56)
[2018-10-09] MEDS: Dabigatran 150 mg Capsule PO SCH ×2 (08:53→20:48)
[2018-10-09] MEDS: Potassium Chloride 20 MEQ TAB PO SCH ×2 (08:54→20:36)
[2018-10-09] MEDS: Multivitamin W/ Minerals 1 TAB PO SCH (08:54)
[2018-10-09] MEDS: Senokot S 8.6-50 MG TAB PO SCH ×2 (08:54→20:46)
[2018-10-09] MEDS: Insulin Glargine 20 UNITS in Pre-Filled Syringe 1 EACH SC SCH (09:50)
[2018-10-09] MEDS: Digoxin 0.125 MG TAB PO SCH (09:52)
[2018-10-09] MEDS: Nebivolol HCl 5 MG TAB PO SCH ×2 (09:52→20:46)
[2018-10-09] MEDS ORDERED: Insulin Regular 300 UNITS/3 ML VIAL ONE (11:27)
[2018-10-09] MEDS ORDERED: PHENYLEPHRINE-NS 100 MCG/ML 10 ML SYRINGE ONE (11:42)
[2018-10-09] MEDS ORDERED: Succinylcholine Chloride 20 MG/ML 10 ml SYRINGE FS ONE (11:42)
[2018-10-09] MEDS ORDERED: PROPOFOL 200 MG/20 ML VIAL ONE (11:42)
[2018-10-09] MEDS ORDERED: Ondansetron PF 4 MG/2 ML Vial ONE (11:42)
[2018-10-09] MEDS ORDERED: Fentanyl 100 MCG/2 ML VIAL ONE ×3 (11:47→13:35)
--- NOTE | 2018-10-09 11:53 | PDOC.PN ---
- Subjective Encounter Start Date: 10/09/18 Encounter Start Time: 10:00 Subjective: he had soft fall this am in the room -: has seen him after the fall and xrays are ordered per patient -: he got regular diet, sugars have hit 400 this am - Objective MAR Reviewed: Yes Vital Signs & Weight: Vital Signs (12 hours) Temp Pulse Resp BP Pulse Ox 10/09/18 09:52 103 H 10/09/18 07:14 98.2 F 103 H 20 142/77 H 95 10/09/18 06:55 98.2 F 88 20 144/88 H 98 10/09/18 03:46 98.1 F 87 16 137/83 95 10/09/18 00:00 97.7 F 78 16 120/65 95 Weight Weight 215 lb 7.584 oz I&O: 10/08/18 10/09/18 10/10/18 06:59 06:59 06:59 Intake Total 2510 Output Total 1200 Balance 1310 Result Diagrams: 10/09/18 06:57 10/09/18 06:57 Additional Labs: Accuchecks 10/09/18 10/09/18 10/09/18 10:56 08:56 05:48 POC Glucose 313 H 343 H 403 H 10/08/18 10/08/18 10/08/18 22:24 20:47 18:37 POC Glucose 213 H 220 H 173 H 10/08/18 10/08/18 10/08/18 15:10 13:10 12:16 POC Glucose 229 H 242 H 195 H 10/08/18 08:15 POC Glucose 188 H Phys Exam - Physical Examination HEENT: PERRLA, moist MMs Neck: no JVD, supple Respiratory: no wheezing, no rales Cardiovascular: RRR, no significant murmur Gastrointestinal: soft, non-tender, positive bowel sounds Musculoskeletal: pulses present mild oozing at knee surgery site Neurological: non-focal, moves all 4 limbs Psychiatric: normal affect, A&O x 3 Dx/Plan (1) DM type 2 (diabetes mellitus, type 2) Status: Chronic Qualifiers: Diabetes mellitus prison insulin use: with long term care social worker use Diabetes mellitus complication status: with neurologic complications Diabetes mellitus complication detail: with polyneuropathy Qualified Code(s): E11.42 - Type 2 diabetes mellitus with diabetic polyneuropathy; Z79.4 - [facility] (current) use of insulin Comment: uncontrolled (2) CKD (chronic kidney disease) Code(s): N18.9 - CHRONIC KIDNEY DISEASE, UNSPECIFIED Status: Chronic Qualifiers: Chronic kidney disease stage: stage 3 (moderate) Qualified Code(s): N18.3 - Chronic kidney disease, stage 3 (moderate) (3) BPH (benign prostatic hyperplasia) Code(s): N40.0 - BENIGN PROSTATIC HYPERPLASIA WITHOUT LOWER URINRY TRACT SYMP Status: Chronic Qualifiers: Lower urinary tract symptom presence: symptoms absent Qualified Code(s): N40.0 - Benign prostatic hyperplasia without lower urinary tract symptoms (4) Afib Code(s): I48.91 - UNSPECIFIED ATRIAL FIBRILLATION Status: Chronic Qualifiers: Atrial fibrillation type: paroxysmal Qualified Code(s): I48.0 - Paroxysmal atrial fibrillation (5) CAD (coronary artery disease) Code(s): I25.10 - ATHSCL HEART DISEASE OF [place] CORONARY ARTERY W/O ANG PCTRS Status: Chronic Qualifiers: Coronary Disease-Associated Artery/Lesion type: [place] artery [place] vs. transplanted heart: [place] heart Associated angina: without angina Qualified Code(s): I25.10 - Atherosclerotic heart disease of [place] coronary artery without angina pectoris Comment: prior stent x2, primary cardio: in [place] (6) CHF (congestive heart failure) Code(s): I50.9 - HEART FAILURE, UNSPECIFIED Status: Chronic Qualifiers: Heart failure type: unspecified Heart failure chronicity: chronic Qualified Code(s): I50.9 - Heart failure, unspecified (7) HTN (hypertension) Code(s): I10 - ESSENTIAL (PRIMARY) HYPERTENSION Status: Chronic Qualifiers: Hypertension type: essential hypertension Qualified Code(s): I10 - Essential (primary) hypertension - Plan is going to OR for wound dehiscence due to fall this am -: lantus 20 u has been given this am, I have educated him about basal insulin -: 1800kcal ada, heart healthy diet after he comes back from OR -: is on aggressive humalog coverage -: I have explained about post op stress effects on glucose metabolism etc * . I have also stressed the importance of keeping fingerstick around 150-200mg/dl for the next 10 days. He insists on getting to lower than 150mg/dl if not his left leg neuropathy will act up, again I have explained that its unlikely to do that. We have discussed about various ways of handling his dm in the outpt setting, For now its better he takes basal insulin and novolog cov at home. Will f/u he will talk to his labels molder and reduce his dose of lasix, Creatinine is 1.4 , I have explained stages of CKD and his is stage 3. Review of Systems - Medications/Allergies Allergies/Adverse Reactions: Allergies Allergy/AdvReac Type Severity Reaction Status Date / Time No Known Allergies Allergy Verified 09/19/18 08:52 Medications: Current Medications Acetaminophen (Tylenol) 650 mg PO Q4H PRN PRN Reason: Headache/Fever or Pain Hydrocodone Bitart/Acetaminophen ([place] 10/325) 1 tab PO Q4H PRN PRN Reason: Pain (1-3) Hydrocodone Bitart/Acetaminophen ([place] 10/325) 2 tab PO Q4H PRN PRN Reason: PAIN (4-6) Last Admin: 10/09/18 05:59 Dose: 2 tab Dabigatran (Pradaxa) 150 mg PO BID [facility] Last Admin: 10/09/18 08:53 Dose: Not Given Dextrose/Water (Dextrose 50%) 25 gm SLOW IVP PRN PRN PRN Reason: Hypoglycemia Digoxin (Lanoxin) 0.125 mg PO QAM [facility] Last Admin: 10/09/18 09:52 Dose: 0.125 mg Diphenhydramine HCl (Benadryl) 25 mg PO Q6H PRN PRN Reason: Itching Fentanyl (Sublimaze) 50 mcg IV Q1H PRN PRN Reason: BREAKTHROUGH PAIN Ferrous Gluconate (Fergon) 324 mg PO BID-WM [facility] Last Admin: 10/09/18 08:53 Dose: Not Given Furosemide (Lasix) 80 mg PO BID-AC [facility] Last Admin: 10/09/18 08:52 Dose: Not Given Glucagon (Glucagon) 1 mg IM PRN PRN PRN Reason: Hypoglycemia Ropivacaine 250 ml/ Device 250 mls @ 0 mls/hr NERVE BLCK INF [facility] Sodium Chloride (Normal Saline 0.9%) 1,000 mls @ 100 mls/hr IV .Q10H [facility] Last Admin: 10/08/18 22:36 Dose: Not Given Dextrose/Water (D5w) 1,000 mls @ 0 mls/hr IV .Q0M PRN PRN Reason: Hypoglycemia Insulin Glargine 20 units/ (Miscellaneous Medication) 0.2 mls @ 0 mls/hr SC QAM [facility] Last Admin: 10/09/18 09:50 Dose: 0.2 mls Insulin Human Lispro (Humalog) 0 units SC .AGGRESSIVE SLIDING PRN PRN Reason: Aggressive Correctional Scale Last Admin: 10/08/18 15:49 Dose: 6 units Insulin Human Lispro (Humalog) 0 units SC .BEDTIME SLIDING SC PRN PRN Reason: Bedtime Correctional Scale Last Admin: 10/09/18 06:00 Dose: 5 unit Iron/Minerals/Multivitamins (Theragran M) 1 tab PO DAILY [facility] Last Admin: 10/09/18 08:54 Dose: Not Given Nebivolol (Bystolic) 10 mg PO BID [facility] Last Admin: 10/09/18 09:52 Dose: 10 mg Ondansetron HCl (Zofran) 4 mg IVP Q6H PRN PRN Reason: Nausea/Vomiting Potassium Chloride (K-Dur) 20 meq PO BID [facility] Last Admin: 10/09/18 08:54 Dose: Not Given Promethazine HCl (Phenergan) 12.5 mg IM Q4H PRN PRN Reason: Nausea/Vomiting Senna/Docusate Sodium (Senokot S) 2 tab PO BID [facility] Last Admin: 10/09/18 08:54 Dose: Not Given Sodium Chloride (Flush - Normal Saline) 10 ml IVF PRN PRN PRN Reason: Saline Flush Tramadol HCl (Ultram) 50 mg PO Q6H PRN PRN Reason: Mild Pain (1-3) Tramadol HCl (Ultram) 100 mg PO Q6H PRN PRN Reason: Moderate Pain 4-6 Zolpidem Tartrate (Ambien) 5 mg PO HSPRN PRN PRN Reason: Insomnia Last Admin: 10/08/18 22:32 Dose: 5 mg
[2018-10-09] MEDS ORDERED: Promethazine HCl 25 MG/ML VIAL IM/IV PRN (13:45)
[2018-10-09] MEDS ORDERED: Ondansetron HCl/PF 4 MG/2 ML Vial IVP PRN (13:45)
[2018-10-09] MEDS ORDERED: Non-Formulary Medication 1 EACH PO PRN (13:45)
[2018-10-09] MEDS: Sodium Chloride 0.9% 1,000 ML IV SCH ×2 (18:39→20:36)
[2018-10-09] MEDS ORDERED: Insulin Glargine 20 UNITS in Pre-Filled Syringe SC SCH (21:00)
[2018-10-09] MEDS: Zolpidem Tartrate 5 MG TAB PO PRN (22:26)
--- NOTE | 2018-10-09 23:12 | OP ---
DATE OF PROCEDURE: 10/09/2018 PREOPERATIVE DIAGNOSIS: Left knee postoperative traumatic arthrotomy. POSTOPERATIVE DIAGNOSIS: Left knee postoperative traumatic arthrotomy. PROCEDURES PERFORMED: Incision, drainage, washout, exploration of left total knee arthroplasty. EMERGENCY DEPT TECH: JOSE ENRIQUE Oquendo. ANESTHESIA: General via LMA. ESTIMATED BLOOD LOSS: Less than 20 mL. TOURNIQUET: Not use. FINDINGS: Skin incision traumatic dehiscence, but without molestation of arthrotomy repair. INDICATION FOR SURGERY: Mr. Mae is a 73-year-old male who is postop day #1 from left total knee arthroplasty. He attempted to get up without assistance during his hospital stay this morning and fell landing on his left knee resulting in an inferior incision traumatic dehiscence. We elected to take the patient to the OR to explore the wound since the bleeding was very difficult to control and explored, washout and performed primary closure. PROCEDURE IN DETAIL: After informed consent in the preoperative holding area, the patient was taken to the operative suite, repositioned properly on the operating table. General anesthesia was induced. Left lower extremity was prepped and draped in usual sterile fashion using a Betadine scrub. The patient received preoperative antibiotics prior to incision. Time-out was called. All members of the surgical team agreed upon site, surgeon and the patient. After this was completed, the left lower extremity was then examined under anesthesia and the patient demonstrated a good solid ligamentous exam to include varus valgus stressing and posterior and anterior drawer. Full extension was noted. There was no hyperextension or lag and no patella baja or justina identified. After this, attention was turned to exploration of the incision, which was partially opened at the inferior aspect and a little bit of bleeding was noted. This was copiously washed out and the subcuticular and subcutaneous layer of running Quill stitches were then removed to the entire length of the incision. This was copiously irrigated. The arthrotomy was thoroughly inspected and found to be unmolested and watertight. No contamination was seen. No metals were exposed. The wound was copiously irrigated with 3 L normal saline and pulsatile lavage. The primary closure was accomplished with a running 0 Quill stitch and skin closure was accomplished with 2-0 Prolene using a combination of a running horizontal mattress as well as an interrupted simples at the inferior aspect to achieve watertight closure. A sterile dressing was applied. He was terminated without any complication. LMA was removed in the operative suite. He was awakened and taken to recovery room. Job ID: [id number]
[2018-10-10] MEDS: HYDROcodone/Acetaminophen 10/325 mg Tablet PO PRN ×3 (06:17→14:29)
[2018-10-10 06:56] LABS: Hemoglobin 14.5 g/dL (14.0-18.0); Mean Corpuscular HGB CONC 31.4 g/dL (32.0-36.0); Mean Corpuscular Hemoglobin 27.1 pg (27.0-31.0); Mean Corpuscular Volume 86.2 fL (78.0-98.0); Mean Platelet Volume 7.8 fL (7.4-10.4); Platelet Count 196 thou/uL (130-400); RBC Distribution Width 14.4 % (11.5-14.5); Red Blood Cell (RBC) Count 5.37 mill/uL (4.70-6.10); White Blood Cell (WBC) Count 11.3 thou/uL (4.8-10.8)
[2018-10-10 07:21] LABS: Anion Gap 14 mmol/L (10-20); BUN (Urea Nitrogen) 31 mg/dL (8.4-25.7); Calc. Creatinine Clearance 78 mL/min (70-130); Calcium 9.7 mg/dL (7.8-10.44); Carbon Dioxide 27 mmol/L (23-31); Chloride 101 mmol/L (98-107); Estimated GFR-MDRD 60; Glucose 164 mg/dL (83-110); Potassium 4.3 mmol/L (3.5-5.1); Sodium 138 mmol/L (136-145)
[2018-10-10] MEDS: Furosemide 80 MG TAB PO SCH ×2 (07:42→18:07)
[2018-10-10] MEDS: Ferrous Gluconate 324 MG TAB PO SCH ×3 (07:52→18:07)
[2018-10-10] MEDS: Senokot S 8.6-50 MG TAB PO SCH (09:21)
[2018-10-10] MEDS: Potassium Chloride 20 MEQ TAB PO SCH (09:22)
[2018-10-10] MEDS: Nebivolol HCl 5 MG TAB PO SCH (09:24)
[2018-10-10] MEDS: Dabigatran 150 mg Capsule PO SCH (09:25)
[2018-10-10] MEDS: Digoxin 0.125 MG TAB PO SCH (09:25)
[2018-10-10] MEDS: Multivitamin W/ Minerals 1 TAB PO SCH (09:25)
[2018-10-10] MEDS: Insulin Glargine 20 UNITS in Pre-Filled Syringe 1 EACH SC SCH (10:16)
[2018-10-10 10:55] VITALS: BMI 327.5
[2018-10-10] MEDS: HumaLOG 300 UNITS/3 ML VIAL SC PRN (11:36)
--- NOTE | 2018-10-10 12:33 | PDOC.PN ---
- Subjective Encounter Start Date: 10/10/18 Encounter Start Time: 10:30 Subjective: feels better this am -: is kind of happy his fingerstick is better -: no further falls, no palp or chest pain - Objective MAR Reviewed: Yes Vital Signs & Weight: Vital Signs (12 hours) Temp Pulse Resp BP Pulse Ox 10/10/18 11:17 97.9 F 74 18 174/83 H 94 L 10/10/18 08:00 98.2 F 80 14 158/99 H 96 10/10/18 04:00 98.1 F 77 18 143/71 H 96 Weight Admit Weight 215 lb 7.52 oz Weight 3.447 oz I&O: 10/09/18 10/10/18 10/11/18 06:59 06:59 06:59 Intake Total 2510 810 Output Total 1200 Balance 1310 810 Result Diagrams: 10/10/18 06:27 10/10/18 06:54 Additional Labs: Accuchecks 10/10/18 10/10/18 10/09/18 10:10 06:24 20:44 POC Glucose 192 H 173 H 160 H 10/09/18 14:37 POC Glucose 240 H Phys Exam - Physical Examination HEENT: PERRLA, moist MMs Neck: no JVD, supple Respiratory: no wheezing, no rales Cardiovascular: no significant murmur, irregular Gastrointestinal: soft, non-tender, positive bowel sounds Musculoskeletal: pulses present Neurological: non-focal, moves all 4 limbs Psychiatric: normal affect, A&O x 3 Dx/Plan (1) DM type 2 (diabetes mellitus, type 2) Status: Chronic Qualifiers: Diabetes mellitus nursing home insulin use: with nursing home use Diabetes mellitus complication status: with neurologic complications Diabetes mellitus complication detail: with polyneuropathy Qualified Code(s): E11.42 - Type 2 diabetes mellitus with diabetic polyneuropathy; Z79.4 - retirement (current) use of insulin Comment: goal is 150-200 while in hospital (2) CKD (chronic kidney disease) Code(s): N18.9 - CHRONIC KIDNEY DISEASE, UNSPECIFIED Status: Chronic Qualifiers: Chronic kidney disease stage: stage 3 (moderate) Qualified Code(s): N18.3 - Chronic kidney disease, stage 3 (moderate) (3) BPH (benign prostatic hyperplasia) Code(s): N40.0 - BENIGN PROSTATIC HYPERPLASIA WITHOUT LOWER URINRY TRACT SYMP Status: Chronic Qualifiers: Lower urinary tract symptom presence: symptoms absent Qualified Code(s): N40.0 - Benign prostatic hyperplasia without lower urinary tract symptoms (4) Afib Code(s): I48.91 - UNSPECIFIED ATRIAL FIBRILLATION Status: Chronic Qualifiers: Atrial fibrillation type: paroxysmal Qualified Code(s): I48.0 - Paroxysmal atrial fibrillation (5) CAD (coronary artery disease) Code(s): I25.10 - ATHSCL HEART DISEASE OF [place] CORONARY ARTERY W/O ANG PCTRS Status: Chronic Qualifiers: Coronary Disease-Associated Artery/Lesion type: [place] artery [place] vs. transplanted heart: [place] heart Associated angina: without angina Qualified Code(s): I25.10 - Atherosclerotic heart disease of [place] coronary artery without angina pectoris Comment: prior stent x2, primary cardio: in [place] (6) CHF (congestive heart failure) Code(s): I50.9 - HEART FAILURE, UNSPECIFIED Status: Chronic Qualifiers: Heart failure type: unspecified Heart failure chronicity: chronic Qualified Code(s): I50.9 - Heart failure, unspecified (7) HTN (hypertension) Code(s): I10 - ESSENTIAL (PRIMARY) HYPERTENSION Status: Chronic Qualifiers: Hypertension type: essential hypertension Qualified Code(s): I10 - Essential (primary) hypertension - Plan hemostable -: is on lantus 20u bid with humalog coverage -: dc plan per ortho adv, will need atleast HH with PT on dc if he ambulates -: I have d/w staff to give him pt info on lantus/basal insulins -: continue pradaxa, dig, bystolic, lasix, ropivacaine * . Review of Systems - Medications/Allergies Allergies/Adverse Reactions: Allergies Allergy/AdvReac Type Severity Reaction Status Date / Time No Known Allergies Allergy Verified 09/19/18 08:52 Medications: Current Medications Acetaminophen (Tylenol) 650 mg PO Q4H PRN PRN Reason: Headache/Fever or Pain Last Admin: 10/10/18 12:06 Dose: 650 mg Hydrocodone Bitart/Acetaminophen ([place] 10/325) 1 tab PO Q4H PRN PRN Reason: Pain (1-3) Hydrocodone Bitart/Acetaminophen ([place] 10/325) 2 tab PO Q4H PRN PRN Reason: PAIN (4-6) Last Admin: 10/10/18 10:37 Dose: 2 tab Dabigatran (Pradaxa) 150 mg PO BID [facility] Last Admin: 10/10/18 09:25 Dose: 150 mg Dextrose/Water (Dextrose 50%) 25 gm SLOW IVP PRN PRN PRN Reason: Hypoglycemia Digoxin (Lanoxin) 0.125 mg PO QAM [facility] Last Admin: 10/10/18 09:25 Dose: 0.125 mg Diphenhydramine HCl (Benadryl) 25 mg PO Q6H PRN PRN Reason: Itching Fentanyl (Sublimaze) 50 mcg IV Q1H PRN PRN Reason: BREAKTHROUGH PAIN Ferrous Gluconate (Fergon) 324 mg PO BID-WM [facility] Last Admin: 10/10/18 09:23 Dose: 324 mg Furosemide (Lasix) 80 mg PO BID-AC [facility] Last Admin: 10/10/18 07:42 Dose: 80 mg Glucagon (Glucagon) 1 mg IM PRN PRN PRN Reason: Hypoglycemia Ropivacaine 250 ml/ Device 250 mls @ 0 mls/hr NERVE BLCK INF [facility] Sodium Chloride (Normal Saline 0.9%) 1,000 mls @ 100 mls/hr IV .Q10H [facility] Last Admin: 10/09/18 20:36 Dose: Not Given Dextrose/Water (D5w) 1,000 mls @ 0 mls/hr IV .Q0M PRN PRN Reason: Hypoglycemia Insulin Glargine 20 units/ (Miscellaneous Medication) 0.2 mls @ 0 mls/hr SC QAM [facility] Last Admin: 10/10/18 10:16 Dose: 0.2 mls Insulin Glargine 20 units/ (Miscellaneous Medication) 0.2 mls @ 0 mls/hr SC HS [facility] Last Admin: 10/09/18 20:45 Dose: 0.2 mls Insulin Human Lispro (Humalog) 0 units SC .AGGRESSIVE SLIDING PRN PRN Reason: Aggressive Correctional Scale Last Admin: 10/10/18 11:36 Dose: 6 units Insulin Human Lispro (Humalog) 0 units SC .BEDTIME SLIDING SC PRN PRN Reason: Bedtime Correctional Scale Last Admin: 10/09/18 06:00 Dose: 5 unit Iron/Minerals/Multivitamins (Theragran M) 1 tab PO DAILY [facility] Last Admin: 10/10/18 09:25 Dose: 1 tab Nebivolol (Bystolic) 10 mg PO BID [facility] Last Admin: 10/10/18 09:24 Dose: 10 mg Ondansetron HCl (Zofran) 4 mg IVP Q6H PRN PRN Reason: Nausea/Vomiting Potassium Chloride (K-Dur) 20 meq PO BID [facility] Last Admin: 10/10/18 09:22 Dose: 20 meq Promethazine HCl (Phenergan) 12.5 mg IM Q4H PRN PRN Reason: Nausea/Vomiting Senna/Docusate Sodium (Senokot S) 2 tab PO BID [facility] Last Admin: 10/10/18 09:21 Dose: 2 tab Sodium Chloride (Flush - Normal Saline) 10 ml IVF PRN PRN PRN Reason: Saline Flush Tramadol HCl (Ultram) 50 mg PO Q6H PRN PRN Reason: Mild Pain (1-3) Tramadol HCl (Ultram) 100 mg PO Q6H PRN PRN Reason: Moderate Pain 4-6 Last Admin: 10/10/18 09:33 Dose: 100 mg Zolpidem Tartrate (Ambien) 5 mg PO HSPRN PRN PRN Reason: Insomnia Last Admin: 10/09/18 22:26 Dose: 5 mg
[2018-10-10 15:10] VITALS: BP 161/103; TEMP 98.3
--- NOTE | 2018-10-10 21:20 | DIS ---
DATE OF ADMISSION: 10/08/2018 DATE OF DISCHARGE: 10/10/2018 DISCHARGE DISPOSITION: Home. PRIMARY DISCHARGE DIAGNOSES: Status post left total knee arthroplasty done on 10/08/[address] Prado. He also had right knee intra-articular injection at the same setting. SECONDARY DISCHARGE DIAGNOSES: Diabetes mellitus type 2; chronic kidney disease stage 3; benign prostatic hyperplasia; chronic atrial fibrillation; coronary artery disease, he follows up with Dr. Sommers, financial aid manager in [place]; history of CHF with unknown ejection fraction; hypertension. PROCEDURES DONE DURING HOSPITALIZATION: The patient has had left total knee arthroplasty done by Dr. Prado on 10/08/2018. White count of 11, H and H 14 and 46, platelet count is 196, BUN 31, creatinine 1.2. The last four Accu-Cheks have ranged from 202-137. Liver enzymes within normal limits. Albumin is 4.4. DISCHARGE MEDICATION: 1. Digoxin 0.125 mg p.o. daily. 2. Humalog coverage as before. 3. Lantus 20 units subcu twice daily. 4. Bystolic 10 mg twice daily. 5. [place] p.r.n. for pain. 6. Lasix 80 mg twice daily. 7. Ferrous sulfate 324 mg twice daily. 8. Pradaxa 150 mg twice daily. 9. Ambien 5 mg p.o. at bedtime p.r.n. for insomnia. 10. Potassium chloride 20 mEq p.o. twice daily. 11. Mikana-3 fatty acids 1 g twice daily. ALLERGIES: NO KNOWN DRUG ALLERGIES. DISCHARGE PLAN: The patient is advised to check his fingerstick glucose twice daily, also blood pressure and pulse twice daily at home for a period of 10 days and record to follow up with primary care physician. He needs follow up with Dr. Prado as advised and primary care physician in 1 week. BRIEF COURSE DURING HOSPITALIZATION: The patient was electively admitted for left total knee arthroplasty for severe osteoarthritis and the right knee intra-articular injection by Dr. Prado. He had this procedure done on 10/08/2018. The patient was recovering well postop. On the , the patient did try to mobilize himself without assistance and fell, had a soft fall with dehiscence of his lower surgical incision. He was taken to OR and has had incision and drainage and washout with exploration of left knee done by Dr. Prado. Postop, [facility] were consulted for comanagement of medical issues. The patient's diabetes has been labile due to stress from surgery and him not taking any long-acting basal insulin with the patient using only NovoLog at home three times daily. Surprisingly, his HbA1c was 6.5 and the patient has been maintaining his fingersticks glucose less than 150 per patient. He also has a history of chronic kidney disease, coronary artery disease and was on high-dose Lasix. His Pradaxa likely for atrial fibrillation was restarted post surgery. He has remained hemodynamically stable. He needs follow up with his primary care physician in [place] in 1 week. He has been cleared by Orthopedic Surgery for discharge. He was advised to follow safe ambulation with a rolling walker. He has remained hemodynamically stable otherwise prior to discharge. I have counseled the patient many times to keep his sugar between 150 and 200 for the next 10 days in view of possible erratic eating habits, nausea due to pain medications. He understands the risk of hypoglycemia and complications. He also knows that if his sugar goes more than 200 he is at risk for infection as well. He was placed on Lantus 20 units subcu twice daily and all patient information regarding basal insulin, long-acting insulin has been given to him. Please note my progress note for the day of discharge on [id number]. Job ID: [id number]
--- NOTE | 2018-10-11 08:18 | PRG ---
DATE OF SERVICE: 10/10/2018 CHIEF COMPLAINT: Left knee pain. HISTORY OF PRESENT ILLNESS: Mr. Chaves is status post closure of traumatic wound from a fall, postop day 0 from his total knee. The patient has knee washed out and was closed with sutures. Currently resting in bed comfortably. No acute pain, knee pillows are in place. PHYSICAL EXAMINATION: NEUROLOGIC: No acute distress, resting comfortably in bed. Neurovascularly intact distally. LABORATORY DATA: The patient's chemistry, his creatinine is corrected to 1.2, glucose is also improved. The patient is neurovascularly intact distally. ASSESSMENT AND PLAN: The patient is status post left total knee arthroplasty, status post fall with traumatic wound dehiscence from fall. PLAN: The patient will be discharged to home, remain in knee immobilizer for a week, sutures will stay in for 3 weeks, begin therapy in a week. Continue his Pradaxa. Job ID: [id number]
== END 2018-10-10 17:55 | disposition home or self-care (01) | DRG 470 ==
LOC: SJJU 10-08 06:25 → EDSTATUS 10-08 08:45 → SURG A 10-08 12:08
PROVIDERS: ADMIT Orthopaedic Surgery; ATTEND Orthopaedic Surgery
PROC: 0SRD0J9 Replacement of Left Knee Joint with Synthetic Substitute, Cemented, Open Approach (ICD-10-PCS; principal; 2018-10-08)
PROC: 3E0U33Z Introduction of Anti-inflammatory into Joints, Percutaneous Approach (ICD-10-PCS; 2018-10-08)
DX: M17.0 Bilateral primary osteoarthritis of knee (principal); I13.0 Hypertensive heart and chronic kidney disease with heart failure and stage 1 through stage 4 chronic kidney disease, or unspecified chronic kidney disease; I25.10 Atherosclerotic heart disease of native coronary artery without angina pectoris; K21.9 Gastro-esophageal reflux disease without esophagitis; E11.42 Type 2 diabetes mellitus with diabetic polyneuropathy; N40.0 Benign prostatic hyperplasia without lower urinary tract symptoms; I48.0 Paroxysmal atrial fibrillation; N18.3 Chronic kidney disease, stage 3 (moderate); I50.9 Heart failure, unspecified; Z79.4 Long term (current) use of insulin; Z79.899 Other long term (current) drug therapy
CPT/HCPCS: 36415; 36416; 80048; 80053; 83036; 85027; C1713; C1776; J0690; J1030; J1100; J1815; J2001; J2250; J2405; J2704; J2795; J3010; J3370; J3490; J7050

== ENCOUNTER 2018-12-17 12:20 | Emergency (ER) | payer MEDICARE ==
[2018-12-17 13:22] LABS: #Eosinphils 0.1 thou/uL (0.0-0.7); #Lymphocytes 1.3 thou/uL (1.20-3.40); #Monocytes 0.8 thou/uL (0.11-0.59); #Neutrophils 4.7 thou/uL (1.40-6.50); %Basophils 0.6 % (0.0-1.0); %Eosinophils 1.2 % (0.0-10.0); %Lymphocytes 18.9 % (21.0-51.0); %Monocytes 10.8 % (0.0-10.0); %Neutrophils 68.5 % (42.0-75.0); Hemoglobin 16.5 g/dL (14.0-18.0); Mean Corpuscular HGB CONC 32.6 g/dL (32.0-36.0); Mean Corpuscular Hemoglobin 28.1 pg (27.0-31.0); Mean Corpuscular Volume 86.2 fL (78.0-98.0); Mean Platelet Volume 7.3 fL (7.4-10.4); Platelet Count 176 thou/uL (130-400); RBC Distribution Width 12.5 % (11.5-14.5); Red Blood Cell (RBC) Count 5.86 mill/uL (4.70-6.10); White Blood Cell (WBC) Count 6.9 thou/uL (4.8-10.8)
[2018-12-17 13:23] LABS: Bilirubin Negative (Negative); Blood, Urine Small (Negative); Glucose, Urine (Dipstick) 100 mg/dL (Negative); Leukocyte Negative (Negative); Nitrite Negative (Negative); Protein, Urine (Dipstick) Negative (Neg-Trace); Urobilinogen 0.2 mg/dL (Less than 2)
[2018-12-17 13:28] LABS: Mucous/LPF Rare LPF (<2+); Squamous Epithelial 0-3 HPF (0-3); WBC/HPF 0-3 HPF (0-3)
[2018-12-17 13:33] LABS: Clarity Clear (Clear)
[2018-12-17 13:42] LABS: Bacteria/HPF None Seen HPF (None Seen)
[2018-12-17 13:48] LABS: ALT (SGPT) 23 U/L (8-55); AST (SGOT) 24 U/L (5-34); Albumin 4.4 g/dL (3.4-4.8); Alkaline Phosphatase 109 U/L (40-150); Anion Gap 14 mmol/L (10-20); BUN (Urea Nitrogen) 24 mg/dL (8.4-25.7); Bilirubin, Total 0.6 mg/dL (0.2-1.2); Calc. Creatinine Clearance 0 mL/min (70-130); Calcium 9.7 mg/dL (7.8-10.44); Carbon Dioxide 28 mmol/L (23-31); Chloride 98 mmol/L (98-107); Estimated GFR-MDRD 56; Globulin 2.5 g/dL (2.4-3.5); Glucose 211 mg/dL (83-110); Lipase 11 U/L (8-78); Potassium 4.5 mmol/L (3.5-5.1); Protein, Total 6.9 g/dL (5.8-8.1); Sodium 135 mmol/L (136-145)
== END 2018-12-17 14:15 | disposition home or self-care (01) ==
LOC: ERS 12:20
DX: R30.0 Dysuria (principal); E11.22 Type 2 diabetes mellitus with diabetic chronic kidney disease; I11.0 Hypertensive heart disease with heart failure; I50.9 Heart failure, unspecified; I48.91 Unspecified atrial fibrillation; Z79.899 Other long term (current) drug therapy; Z79.891 Long term (current) use of opiate analgesic; Z79.4 Long term (current) use of insulin
CPT/HCPCS: 36415; 36416; 80053; 81003; 81015; 83690; 85025; 99283

== ENCOUNTER 2019-01-09 22:01 | Emergency (ER) | payer MEDICARE ==
--- NOTE | 2019-01-09 22:29 | RAD ---
Frontal view chest Comparison 09/30/2018 INDICATION: Hypertension, short of breath. FINDINGS: There is prominence of the cardiac silhouette. No consolidation, or effusion. Chest is otherwise deniz lar. IMPRESSION: No focal consolidation. Prominent cardiac silhouette. Transcribed Date/Time: 01/09/2019 11:43 PM
[2019-01-09 22:38] LABS: #Basophils 0.1 thou/uL (0.0-0.2); #Eosinphils 0.1 thou/uL (0.0-0.7); #Lymphocytes 2.4 thou/uL (1.20-3.40); #Monocytes 1.1 thou/uL (0.11-0.59); #Neutrophils 5.5 thou/uL (1.40-6.50); %Basophils 0.7 % (0.0-1.0); %Eosinophils 1.5 % (0.0-10.0); %Lymphocytes 25.6 % (21.0-51.0); %Monocytes 12.2 % (0.0-10.0); Mean Corpuscular HGB CONC 33.9 g/dL (32.0-36.0); Mean Corpuscular Hemoglobin 29.4 pg (27.0-31.0); Mean Corpuscular Volume 86.9 fL (78.0-98.0); Mean Platelet Volume 7.7 fL (7.4-10.4); Platelet Count 181 thou/uL (130-400); RBC Distribution Width 12.4 % (11.5-14.5); Red Blood Cell (RBC) Count 5.76 mill/uL (4.70-6.10); White Blood Cell (WBC) Count 9.2 thou/uL (4.8-10.8)
[2019-01-09 23:01] LABS: ALT (SGPT) 29 U/L (8-55); AST (SGOT) 21 U/L (5-34); Albumin 4.2 g/dL (3.4-4.8); Alkaline Phosphatase 116 U/L (40-110); Anion Gap 10 mmol/L (10-20); BUN (Urea Nitrogen) 20 mg/dL (8.4-25.7); Bilirubin, Total 0.5 mg/dL (0.2-1.2); Calc. Creatinine Clearance 0 mL/min (70-130); Calcium 9.6 mg/dL (7.8-10.44); Carbon Dioxide 28 mmol/L (23-31); Chloride 101 mmol/L (98-107); Estimated GFR-MDRD 57; Globulin 2.4 g/dL (2.4-3.5); Glucose 130 mg/dL (83-110); Potassium 3.8 mmol/L (3.5-5.1); Protein, Total 6.6 g/dL (5.8-8.1); Sodium 135 mmol/L (136-145)
--- NOTE | 2019-01-11 14:44 | EKG ---
Test Reason : Blood Pressure : / mmHG Vent. Rate : 060 BPM Atrial Rate : 500 BPM P-R Int : 000 ms QRS Dur : 144 ms QT Int : 432 ms P-R-T Axes : 000 017 -17 degrees QTc Int : 432 ms Atrial fibrillation Right bundle branch block Abnormal ECG Confirmed by ZABRINA DOWELL DO ([id number]), pulpwood contractor LUCIEN DYE ([id number] on 01/11/2019 2:43:44 PM Referred By: Confirmed By:ZABRINA DOWELL DO
== END 2019-01-09 23:25 | disposition home or self-care (01) ==
LOC: ERS 22:01
DX: I11.0 Hypertensive heart disease with heart failure (principal); I50.9 Heart failure, unspecified; F11.23 Opioid dependence with withdrawal; Z79.899 Other long term (current) drug therapy
CPT/HCPCS: 36415; 36416; 71045; 80053; 83880; 84484; 85025; 93005